=== PATIENT | male | born 1955 | race Caucasian/White ===

== ENCOUNTER 2021-07-22 01:24 | Emergency (ER) | payer MEDICARE, BC ==
[~2021-07-22] VITALS: Ht 185.4 cm; Wt 129.3 kg
[2021-07-22] MEDS ORDERED: BELLADONNA ALK/PHENOBARBITAL 5 ML UDC PO ONE (01:30)
[2021-07-22] MEDS ORDERED: MAGNESIUM/ALUMINUM/SIMETHICONE 30 ML UDC PO ONE (01:30)
[2021-07-22] MEDS ORDERED: LIDOCAINE VISC 2% SOLN 15 ML UDC PO ONE (01:30)
[2021-07-22 01:56] LABS: BASOPHILS % 0.7 % (0.0-1.0); EOSINOPHILS # (AUTO) 0.3 (0.0-0.4); EOSINOPHILS % 4.6 % (0.0-6.0); HEMATOCRIT 42.9 % (38.2-49.6); HEMOGLOBIN 13.5 g/dL (14.0-18.0); LYMPHOCYTES # (AUTO) 1.2 (1.0-3.2); LYMPHOCYTES % 19.7 % (18.0-39.1); MEAN CORPUSCULAR HEMOGLOBIN 26.7 pg (28-32); MEAN CORPUSCULAR HGB CONC 31.5 g/dL (31-35); MEAN CORPUSCULAR VOLUME 84.8 fL (81-99); MONOCYTES # (AUTO) 0.5 (0.2-0.8); MONOCYTES % 7.7 % (4.4-11.3); NEUTROPHILS # (AUTO) 4.1 (2.1-6.9); PLATELET COUNT 201 x10e3/uL (140-360); RED BLOOD COUNT 5.06 x10e6/uL (4.3-5.7); RED CELL DISTRIBUTION WIDTH 14.2 % (11.7-14.4)
[2021-07-22 02:11] LABS: ALBUMIN 3.1 g/dL (3.5-5.0); ALBUMIN/GLOBULIN RATIO 0.6 (0.8-2.0); ANION GAP 14.3 mmol/L (8-16); CALCIUM 9.4 mg/dL (8.4-10.2); CREATININE, SERUM 1.06 mg/dL (0.72-1.25); POTASSIUM 4.3 mmol/L (3.5-5.1)
[2021-07-22 02:17] LABS: CREATINE KINASE MB 1.1 ng/mL (0-5.0)
[2021-07-22 02:22] LABS: AMYLASE 64 U/L (25-125); LIPASE 117 U/L (8-78)
[2021-07-22] MEDS ORDERED: SODIUM CHLORIDE 0.9% 50ML 50 ML ONE (04:51)
[2021-07-22] MEDS ORDERED: IOPAMIDOL 370 MG/ML 200 ML INFUS..BTL INJ ONE (04:51)
[2021-07-22 05:58] LABS: CLARITY,URINE SL CLOUDY (CLEAR); COLOR,URINE YELLOW (YELLOW)
[2021-07-22 05:59] LABS: KETONES,URINE NEGATIVE (NEGATIVE); LEUKOCYTE ESTERASE ,URINE LARGE (NEGATIVE); NITRITE,URINE POSITIVE (NEGATIVE); PROTEIN,URINE DIPSTICK NEGATIVE (NEGATIVE)
[2021-07-22 06:12] LABS: BACTERIA,URINE MANY /HPF; WBC,URINE (MAN) >50 /HPF (0-5)
[2021-07-22 06:13] LABS: EPITHELIAL CELLS,URINE FEW /LPF
[2021-07-22 06:38] VITALS: BP 110/83
== END 2021-07-22 06:45 | disposition home or self-care (01) ==
LOC: ER 01:27
DX: R10.13 Epigastric pain (principal); R11.2 Nausea with vomiting, unspecified; N39.0 Urinary tract infection, site not specified; R94.5 Abnormal results of liver function studies; N42.9 Disorder of prostate, unspecified; E80.6 Other disorders of bilirubin metabolism; I10 Essential (primary) hypertension; Z20.822 Contact with and (suspected) exposure to COVID-19; F17.210 Nicotine dependence, cigarettes, uncomplicated
CPT/HCPCS: 36415; 74177; 76705; 80053; 80320; 81001; 82150; 82550; 82553; 83690; 84484; 85025; 93005; 99284; C9113; Q9967; U0002

== ENCOUNTER 2022-01-21 14:28 | Emergency (ER) | payer MEDICARE, BC ==
[~2022-01-21] VITALS: Ht 185.4 cm; Wt 120.2 kg
[2022-01-21] MEDS ORDERED: ONDANSETRON HCL INJ 2MG/ML 2ML 2 MG/ML VIAL IV STA (14:57)
[2022-01-21] MEDS ORDERED: SODIUM CHLORIDE 0.9% 1000ML 1,000 ML IV ONE (15:00)
[2022-01-21] MEDS ORDERED: DIPHENHYDRAMINE HCL INJ 50 MG/ML VIAL IV ONE (15:00)
[2022-01-21] MEDS ORDERED: ACETAMINOPHEN 325 MG TAB PO ONE (15:00)
[2022-01-21] MEDS ORDERED: METOCLOPRAMIDE HCL 10 MG/2ML VIAL IV ONE (15:00)
[2022-01-21] MEDS ORDERED: DIPHENHYDRAMINE HCL 25 MG CAP PO ONE (15:30)
[2022-01-21] MEDS ORDERED: ONDANSETRON HCL 4 MG ORAL DISINTEGRATING TAB PO ONE (15:30)
[2022-01-21] MEDS ORDERED: METOCLOPRAMIDE HCL 10 MG TAB PO ONE (15:30)
[2022-01-21 15:33] LABS: ALBUMIN 3.6 g/dL (3.5-5.0); ALBUMIN/GLOBULIN RATIO 0.7 (0.8-2.0); ANION GAP 17.6 mmol/L (8-16); CREATININE, SERUM 0.84 mg/dL (0.72-1.25); POTASSIUM 4.6 mmol/L (3.5-5.1)
[2022-01-21 15:37] LABS: BASOPHILS % 0.7 % (0.0-1.0); EOSINOPHILS # (AUTO) 0.4 (0.0-0.4); EOSINOPHILS % 7.6 % (0.0-6.0); HEMATOCRIT 44.4 % (38.2-49.6); HEMOGLOBIN 14.6 g/dL (14.0-18.0); LYMPHOCYTES # (AUTO) 1.3 (1.0-3.2); MEAN CORPUSCULAR HEMOGLOBIN 28.2 pg (28-32); MEAN CORPUSCULAR HGB CONC 32.9 g/dL (31-35); MEAN CORPUSCULAR VOLUME 85.9 fL (81-99); MONOCYTES # (AUTO) 0.4 (0.2-0.8); MONOCYTES % 6.6 % (4.4-11.3); NEUTROPHILS # (AUTO) 3.6 (2.1-6.9); NEUTROPHILS % 61.9 % (38.7-80.0); PLATELET COUNT 114 x10e3/uL (140-360); RED BLOOD COUNT 5.17 x10e6/uL (4.3-5.7); RED CELL DISTRIBUTION WIDTH 13.9 % (11.7-14.4)
[2022-01-21] MEDS ORDERED: FIORICET 50-301 EACH PO (17:13)
[2022-01-21 17:24] VITALS: BP 136/77
== END 2022-01-21 17:26 | disposition home or self-care (01) ==
LOC: ER 14:31
DX: R51.9 Headache, unspecified (principal); R11.2 Nausea with vomiting, unspecified; I10 Essential (primary) hypertension; B20 Human immunodeficiency virus [HIV] disease; K21.9 Gastro-esophageal reflux disease without esophagitis
CPT/HCPCS: 36415; 70450; 80053; 85025; 99284; J8597; Q0162

== ENCOUNTER 2024-01-01 09:35 | Inpatient (IN) | payer MEDICARE, BC ==
[~2024-01-01] VITALS: Ht 185.4 cm; Wt 111.1 kg
[2024-01-01] VITALS (8 sets, daily range): BP systolic 101–121; BP diastolic 73–81; PULSE 72–98; RESP 18–26; TEMP 97.8–99; O2SAT 96–100
[~2024-01-01 09:35] MED LIST: FIORICET 50-301 EACH PO
[2024-01-01 10:14] LABS: BASOPHILS # (AUTO) 0.1 (0.0-0.1); EOSINOPHILS # (AUTO) 0.8 (0.0-0.4); EOSINOPHILS % 14.5 % (0.0-6.0); HEMATOCRIT 43.7 % (38.2-49.6); HEMOGLOBIN 14.3 g/dL (14.0-18.0); LYMPHOCYTES # (AUTO) 1.7 (1.0-3.2); LYMPHOCYTES % 30.1 % (18.0-39.1); MEAN CORPUSCULAR HEMOGLOBIN 29.5 pg (28-32); MEAN CORPUSCULAR HGB CONC 32.7 g/dL (31-35); MEAN CORPUSCULAR VOLUME 90.1 fL (81-99); MONOCYTES # (AUTO) 0.5 (0.2-0.8); MONOCYTES % 8.7 % (4.4-11.3); NEUTROPHILS # (AUTO) 2.6 (2.1-6.9); NEUTROPHILS % 45.5 % (38.7-80.0); PLATELET COUNT 105 x10e3/uL (140-360); RED BLOOD COUNT 4.85 x10e6/uL (4.3-5.7); RED CELL DISTRIBUTION WIDTH 13.5 % (11.7-14.4); WHITE BLOOD COUNT 5.78 x10e3/uL (4.8-10.8)
[2024-01-01 10:35] LABS: ALBUMIN 3.2 g/dL (3.5-5.0); ALBUMIN/GLOBULIN RATIO 0.7 (0.8-2.0); ANION GAP 15.3 mmol/L (8-16); BILIRUBIN,TOTAL 1.1 mg/dL (0.2-1.2); CALCIUM 9.2 mg/dL (8.4-10.2); CREATININE, SERUM 0.87 mg/dL (0.72-1.25); POTASSIUM 4.3 mmol/L (3.5-5.1); TOTAL PROTEIN 7.6 g/dL (6.5-8.1)
[2024-01-01 10:41] LABS: TROPONIN I 0.006 ng/mL (0-0.300)
[2024-01-01] MEDS: ASPIRIN 81 MG CHEW TAB PO ONE (12:20)
[2024-01-01] MEDS ORDERED: ONDANSETRON HCL INJ 2MG/ML 2ML 2 MG/ML VIAL IV PRN (12:30)
[2024-01-01] MEDS: ALBUTEROL/IPRATROPIUM 3 ML NEB NEB SCH (14:00)
[2024-01-01] MEDS: NICOTINE 21 MG/EA PATCH TOP PRN (16:20)
[2024-01-01] MEDS: TRAMADOL HCL 50 MG TAB PO PRN (16:21)
[2024-01-01] MEDS: KETOROLAC TROMETHAMINE 30 MG/ML VIAL IV ONE (16:22)
[2024-01-02] VITALS (8 sets, daily range): BP systolic 102–128; BP diastolic 70–88; PULSE 64–85; RESP 16–24; TEMP 97.3–98.3; O2SAT 96–100
[2024-01-02 06:01] LABS: BASOPHILS # (AUTO) 0.1 (0.0-0.1); BASOPHILS % 1.1 % (0.0-1.0); EOSINOPHILS % 22.3 % (0.0-6.0); HEMATOCRIT 43.4 % (38.2-49.6); LYMPHOCYTES # (AUTO) 1.6 (1.0-3.2); LYMPHOCYTES % 33.5 % (18.0-39.1); MEAN CORPUSCULAR HEMOGLOBIN 29.2 pg (28-32); MEAN CORPUSCULAR HGB CONC 32.3 g/dL (31-35); MEAN CORPUSCULAR VOLUME 90.6 fL (81-99); MONOCYTES # (AUTO) 0.4 (0.2-0.8); MONOCYTES % 8.7 % (4.4-11.3); NEUTROPHILS # (AUTO) 1.6 (2.1-6.9); NEUTROPHILS % 34.2 % (38.7-80.0); PLATELET COUNT 95 x10e3/uL (140-360); RED BLOOD COUNT 4.79 x10e6/uL (4.3-5.7); RED CELL DISTRIBUTION WIDTH 13.4 % (11.7-14.4); WHITE BLOOD COUNT 4.62 x10e3/uL (4.8-10.8)
[2024-01-02] MEDS: ACETAMINOPHEN 325 MG TAB PO PRN (06:27)
[2024-01-02 06:29] LABS: ALBUMIN 2.9 g/dL (3.5-5.0); ALBUMIN/GLOBULIN RATIO 0.6 (0.8-2.0); ANION GAP 12.1 mmol/L (8-16); BILIRUBIN,TOTAL 1.1 mg/dL (0.2-1.2); CALCIUM 8.7 mg/dL (8.4-10.2); CHOL/HDL RATIO 3.3 (3.9-4.7); CREATININE, SERUM 0.84 mg/dL (0.72-1.25); POTASSIUM 4.1 mmol/L (3.5-5.1); TOTAL PROTEIN 7.4 g/dL (6.5-8.1)
[2024-01-02 06:37] LABS: THYROID STIMULATING HORMONE 7.586 uIU/mL (0.350-4.940); TROPONIN I 0.011 ng/mL (0-0.300)
[2024-01-02] MEDS: LIDOCAINE 4% PATCH TP SCH (07:45)
[2024-01-02 08:48] LABS: EOSINOPHILS % (MANUAL) 16 % (0-7); LYMPHOCYTES % (MANUAL) 24 % (19-48); MONOCYTES % (MANUAL) 9 % (3.4-9.0); MYELOCYTES % (MANUAL) 1 % (0-0); NEUTROPHILS % (MANUAL) 48 % (40-74); PLATELET ESTIMATE SLIGHTLY DECREASED; PLATELET MORPHOLOGY COMMENT NORMAL; RBC MORPHOLOGY COMMENT NORMAL; REACTIVE LYMPHOCYTES 2
[2024-01-02] MEDS ORDERED: AMOXICILLIN/CLAVULANATE K 875 MG TAB PO SCH (13:15)
[2024-01-02] MEDS ORDERED: REGADENOSON 0.4 MG/5 ML SYR IV ONE (14:21)
[2024-01-02] MEDS: AMOXICILLIN/CLAVULANATE K 875 MG TAB PO SCH (16:59)
[2024-01-02] MEDS ORDERED: AUGMENTIN 500-1 EACH PO (21:48)
== END 2024-01-02 17:13 | disposition home or self-care (01) | DRG 194 ==
LOC: ER 09:41 → ERHOLD 11:35 → MED/SURG3 13:56 → OBSVTOIN 01-02 14:06
PROVIDERS: ADMIT Internal Medicine; ATTEND Internal Medicine
DX: J18.9 Pneumonia, unspecified organism (principal); C34.92 Malignant neoplasm of unspecified part of left bronchus or lung; Z87.820 Personal history of traumatic brain injury; Z21 Asymptomatic human immunodeficiency virus [HIV] infection status; K21.9 Gastro-esophageal reflux disease without esophagitis; D69.6 Thrombocytopenia, unspecified; Z11.52 Encounter for screening for COVID-19; I10 Essential (primary) hypertension; Z88.5 Allergy status to narcotic agent; Z91.199 Patient's noncompliance with other medical treatment and regimen due to unspecified reason; Z90.49 Acquired absence of other specified parts of digestive tract; F17.210 Nicotine dependence, cigarettes, uncomplicated; F17.220 Nicotine dependence, chewing tobacco, uncomplicated; F17.290 Nicotine dependence, other tobacco product, uncomplicated
CPT/HCPCS: 36415; 71045; 71260; 78452; 80053; 80061; 82550; 84443; 84484; 85025; 93005; 93017; 94799; 99284; A9502; G0378; J1885; U0002

== ENCOUNTER 2024-11-09 00:08 | Emergency (ER) | payer MEDICARE, BC ==
[~2024-11-09] VITALS: Ht 185.4 cm; Wt 111.1 kg
[~2024-11-09 00:08] MED LIST changes: +AUGMENTIN 500-1 EACH PO; +CEFDINIR300 MG PO; +MECLIZINE HCL12.5 MG PO; +ULTRAM 50MG50 MG PO
[2024-11-09 00:35] VITALS: PULSE 94; RESP 18; TEMP 98.5
[2024-11-09] MEDS ORDERED: DOXYCYCLINE HY100 MG PO (03:24)
[2024-11-09 03:36] VITALS: BP 103/68; PULSE 89; RESP 18; TEMP 98.1; O2SAT 96
== END 2024-11-09 03:40 | disposition home or self-care (01) ==
LOC: ER 00:57
DX: R07.89 Other chest pain (principal); J18.9 Pneumonia, unspecified organism; R91.8 Other nonspecific abnormal finding of lung field; K76.9 Liver disease, unspecified; I10 Essential (primary) hypertension; B20 Human immunodeficiency virus [HIV] disease; K21.9 Gastro-esophageal reflux disease without esophagitis; F17.210 Nicotine dependence, cigarettes, uncomplicated
CPT/HCPCS: 71250; 99283

== ENCOUNTER 2024-11-16 16:53 | Inpatient (IN) | payer MEDICARE, BC ==
[~2024-11-16] VITALS: Ht 185.4 cm; Wt 89.8 kg
[~2024-11-16 16:53] MED LIST changes: +DOXYCYCLINE HY100 MG PO
[2024-11-16 18:12] LABS: BASOPHILS % 0.6 % (0.0-1.0); EOSINOPHILS # (AUTO) 0.6 (0.0-0.4); EOSINOPHILS % 8.7 % (0.0-6.0); HEMATOCRIT 37.7 % (38.2-49.6); HEMOGLOBIN 11.9 g/dL (14.0-18.0); LYMPHOCYTES # (AUTO) 1.2 (1.0-3.2); LYMPHOCYTES % 16.8 % (18.0-39.1); MEAN CORPUSCULAR HEMOGLOBIN 25.4 pg (28-32); MEAN CORPUSCULAR HGB CONC 31.6 g/dL (31-35); MEAN CORPUSCULAR VOLUME 80.4 fL (81-99); MONOCYTES # (AUTO) 0.8 (0.2-0.8); MONOCYTES % 11.2 % (4.4-11.3); NEUTROPHILS # (AUTO) 4.3 (2.1-6.9); NEUTROPHILS % 62.4 % (38.7-80.0); PLATELET COUNT 245 x10e3/uL (140-360); RED BLOOD COUNT 4.69 x10e6/uL (4.3-5.7); RED CELL DISTRIBUTION WIDTH 15.1 % (11.7-14.4); WHITE BLOOD COUNT 6.86 x10e3/uL (4.8-10.8)
[2024-11-16 18:40] LABS: ALBUMIN 2.3 g/dL (3.5-5.0); ALBUMIN/GLOBULIN RATIO 0.5 (0.8-2.0); ANION GAP 14.1 mmol/L (8-16); CALCIUM 8.8 mg/dL (8.4-10.2); CREATININE, SERUM 0.85 mg/dL (0.72-1.25); POTASSIUM 4.1 mmol/L (3.5-5.1)
[2024-11-16] MEDS ORDERED: ONDANSETRON HCL INJ 2MG/ML 2ML 2 MG/ML VIAL ONE (18:42)
[2024-11-16] MEDS: ONDANSETRON HCL INJ 2MG/ML 2ML 2 MG/ML VIAL IV STA (18:55)
[2024-11-16] MEDS: SODIUM CHLORIDE 0.9% 1000ML 1,000 ML IV ONE ×2 (18:56→23:10)
[2024-11-16 19:01] LABS: BILIRUBIN,URINE NEGATIVE (NEGATIVE); CLARITY,URINE SL CLOUDY (CLEAR); COLOR,URINE AMBER (YELLOW); GLUCOSE, URINE NEGATIVE (NEGATIVE); KETONES,URINE NEGATIVE (NEGATIVE); LEUKOCYTE ESTERASE ,URINE NEGATIVE (NEGATIVE); NITRITE,URINE NEGATIVE (NEGATIVE); PH,URINE 6 (5 - 7); PROTEIN,URINE DIPSTICK NEGATIVE (NEGATIVE); URINE UROBILINOGEN 2 mg/dL (0.2 - 1)
[2024-11-16 19:10] LABS: BACTERIA,URINE FEW /HPF; MUCUS,URINE MODERATE
[2024-11-16 19:15] LABS: TROPONIN I 0.032 ng/mL (0-0.300)
[2024-11-16] MEDS ORDERED: ONDANSETRON ODT4 MG SL (21:46)
[2024-11-16 23:10] VITALS: PULSE 71; RESP 18; TEMP 98.3
[2024-11-17] VITALS (10 sets, daily range): BP systolic 92–122; BP diastolic 59–87; PULSE 68–82; RESP 17–20; TEMP 97.4–98.2; O2SAT 94–100
[2024-11-17] MEDS ORDERED: IOPAMIDOL 370 MG/ML 100 ML INFUS..BTL INJ ONE (01:09)
[2024-11-17 05:22] LABS: BASOPHILS # (AUTO) 0.1 (0.0-0.1); EOSINOPHILS # (AUTO) 0.4 (0.0-0.4); EOSINOPHILS % 7.2 % (0.0-6.0); HEMATOCRIT 35.9 % (38.2-49.6); HEMOGLOBIN 11.2 g/dL (14.0-18.0); LYMPHOCYTES # (AUTO) 1.2 (1.0-3.2); LYMPHOCYTES % 19.2 % (18.0-39.1); MEAN CORPUSCULAR HEMOGLOBIN 25.7 pg (28-32); MEAN CORPUSCULAR HGB CONC 31.2 g/dL (31-35); MEAN CORPUSCULAR VOLUME 82.5 fL (81-99); MONOCYTES # (AUTO) 0.8 (0.2-0.8); NEUTROPHILS # (AUTO) 3.6 (2.1-6.9); NEUTROPHILS % 59.1 % (38.7-80.0); PLATELET COUNT 184 x10e3/uL (140-360); RED BLOOD COUNT 4.35 x10e6/uL (4.3-5.7); WHITE BLOOD COUNT 6.09 x10e3/uL (4.8-10.8)
[2024-11-17 05:59] LABS: ALBUMIN 1.9 g/dL (3.5-5.0); ALBUMIN/GLOBULIN RATIO 0.5 (0.8-2.0); ANION GAP 9.7 mmol/L (8-16); CALCIUM 8.1 mg/dL (8.4-10.2); CREATININE, SERUM 0.74 mg/dL (0.72-1.25); POTASSIUM 3.7 mmol/L (3.5-5.1); TOTAL PROTEIN 5.8 g/dL (6.5-8.1)
[2024-11-17 06:16] LABS: TROPONIN I 0.024 ng/mL (0-0.300)
[2024-11-17] MEDS ORDERED: ALBUTEROL/IPRATROPIUM 3 ML NEB NEB PRN (10:00)
[2024-11-17] MEDS ORDERED: HYDRALAZINE HCL 20 MG/ML VIAL IV PRN (10:00)
[2024-11-17] MEDS ORDERED: MELATONIN 5 MG TABLET PO PRN (10:00)
[2024-11-17] MEDS ORDERED: DIPHENHYDRAMINE HCL 25 MG CAP PO PRN (10:00)
[2024-11-17] MEDS ORDERED: DEXTROSE 50% SYRINGE 50 ML IV PRN (10:00)
[2024-11-17] MEDS ORDERED: DOCUSATE SODIUM 100 MG CAP PO PRN (10:00)
[2024-11-17] MEDS ORDERED: LIDOCAINE 4% PATCH TP PRN (10:00)
[2024-11-17] MEDS ORDERED: POTASSIUM CHLORIDE 20 MEQ TAB CR PO PRN (10:00)
[2024-11-17] MEDS ORDERED: BENZONATATE 100 MG CAP PO PRN (10:00)
[2024-11-17] MEDS ORDERED: SIMETHICONE 80 MG CHEW PO PRN (10:00)
[2024-11-17] MEDS ORDERED: ACETAMINOPHEN 325 MG TAB PO PRN (10:00)
[2024-11-17] MEDS ORDERED: MULTIVITAMINS- 12 INJECTION 10 ML, FOLIC ACID MDV 1 MG, THIAMINE HCL INJ 100 MG in SODI... IV SCH (14:30)
[2024-11-17 15:06] LABS: HIV 1&2 AB SCREEN ***REACTIVE*** (NONREACTIVE); HIV- 1 P24 AG SCREEN NON-REACTIVE (NONREACTIVE)
[2024-11-17 15:14] LABS: TROPONIN I 0.038 ng/mL (0-0.300)
[2024-11-17] MEDS: ENOXAPARIN SOD INJ 40 MG/0.4 ML SYR SC SCH (17:00)
[2024-11-17] MEDS: ALBUTEROL/IPRATROPIUM 3 ML NEB NEB SCH (19:00)
[2024-11-17] MEDS: MULTIVITAMINS- 12 INJECTION 10 ML, FOLIC ACID MDV 1 MG, THIAMINE HCL INJ 100 MG in SODI... IV SCH (19:18)
[2024-11-17] MEDS: MIDODRINE HCL 5 MG TABLET PO SCH (21:33)
[2024-11-17] MEDS: ONDANSETRON HCL INJ 2MG/ML 2ML 2 MG/ML VIAL IV PRN (23:27)
[2024-11-18] VITALS (11 sets, daily range): BP systolic 93–109; BP diastolic 56–65; PULSE 51–79; RESP 16–21; TEMP 97.1–98.3; O2SAT 95–100
[2024-11-18 06:13] LABS: BASOPHILS % 0.7 % (0.0-1.0); EOSINOPHILS # (AUTO) 0.6 (0.0-0.4); EOSINOPHILS % 11.3 % (0.0-6.0); HEMATOCRIT 38.2 % (38.2-49.6); HEMOGLOBIN 11.7 g/dL (14.0-18.0); LYMPHOCYTES # (AUTO) 1.1 (1.0-3.2); MEAN CORPUSCULAR HEMOGLOBIN 25.6 pg (28-32); MEAN CORPUSCULAR HGB CONC 30.6 g/dL (31-35); MEAN CORPUSCULAR VOLUME 83.6 fL (81-99); MONOCYTES # (AUTO) 0.7 (0.2-0.8); MONOCYTES % 12.2 % (4.4-11.3); NEUTROPHILS # (AUTO) 3.1 (2.1-6.9); NEUTROPHILS % 55.4 % (38.7-80.0); PLATELET COUNT 203 x10e3/uL (140-360); RED BLOOD COUNT 4.57 x10e6/uL (4.3-5.7); RED CELL DISTRIBUTION WIDTH 15.5 % (11.7-14.4); WHITE BLOOD COUNT 5.64 x10e3/uL (4.8-10.8)
[2024-11-18 06:33] LABS: INR 1.11; PROTHROMBIN TIME 15.3 seconds (11.9-14.5)
[2024-11-18 06:44] LABS: ANION GAP 11.3 mmol/L (8-16); CALCIUM 8.5 mg/dL (8.4-10.2); CHOL/HDL RATIO 3.2 (3.9-4.7); CREATININE, SERUM 0.77 mg/dL (0.72-1.25); MAGNESIUM 1.8 MG/DL (1.3-2.1); PHOSPHORUS 2.9 MG/DL (2.3-4.7); POTASSIUM 4.3 mmol/L (3.5-5.1)
[2024-11-18 07:08] LABS: THYROID STIMULATING HORMONE 4.509 uIU/mL (0.350-4.940)
[2024-11-18] MEDS: PANTOPRAZOLE SOD 40 MG TABEC PO SCH (10:29)
[2024-11-18] MEDS: FUROSEMIDE INJ 10 MG/ML 4 ML VIAL IV ONE (10:29)
[2024-11-18] MEDS: FUROSEMIDE INJ 10 MG/ML 4 ML VIAL IV SCH (17:31)
[2024-11-18] MEDS: Vancomycin IV 1 GM in SODIUM CHLORIDE 0.9% 250ML 250 ML IV SCH (17:31)
[2024-11-18] MEDS: METOPROLOL TARTRATE 25 MG TAB PO SCH (17:32)
[2024-11-19] VITALS (10 sets, daily range): BP systolic 80–108; BP diastolic 48–65; PULSE 63–87; RESP 16–20; TEMP 97.3–98.6; O2SAT 92–100
[2024-11-19 08:28] LABS: BASOPHILS # (AUTO) 0.1 (0.0-0.1); BASOPHILS % 1.2 % (0.0-1.0); EOSINOPHILS # (AUTO) 0.8 (0.0-0.4); EOSINOPHILS % 11.8 % (0.0-6.0); HEMATOCRIT 41.6 % (38.2-49.6); HEMOGLOBIN 12.9 g/dL (14.0-18.0); LYMPHOCYTES # (AUTO) 1.3 (1.0-3.2); LYMPHOCYTES % 19.6 % (18.0-39.1); MEAN CORPUSCULAR HEMOGLOBIN 25.7 pg (28-32); MEAN CORPUSCULAR VOLUME 82.9 fL (81-99); MONOCYTES # (AUTO) 0.6 (0.2-0.8); MONOCYTES % 9.3 % (4.4-11.3); NEUTROPHILS # (AUTO) 3.8 (2.1-6.9); NEUTROPHILS % 57.6 % (38.7-80.0); PLATELET COUNT 198 x10e3/uL (140-360); RED BLOOD COUNT 5.02 x10e6/uL (4.3-5.7); RED CELL DISTRIBUTION WIDTH 15.2 % (11.7-14.4); WHITE BLOOD COUNT 6.59 x10e3/uL (4.8-10.8)
[2024-11-19 09:04] LABS: ANION GAP 13.5 mmol/L (8-16); CALCIUM 8.6 mg/dL (8.4-10.2); CREATININE, SERUM 0.83 mg/dL (0.72-1.25); POTASSIUM 3.5 mmol/L (3.5-5.1)
[2024-11-19] MEDS: FOLIC ACID 1 MG TAB PO SCH (09:42)
[2024-11-19] MEDS: ASPIRIN 81 MG ENTERIC COATED PO SCH (09:43)
[2024-11-19] MEDS: THIAMINE HCL INJ 100 MG/ML 2ML VIAL IV SCH (09:43)
[2024-11-19] MEDS: MIDODRINE HCL 5 MG TABLET PO SCH (21:08)
[2024-11-20] VITALS (8 sets, daily range): BP systolic 89–103; BP diastolic 49–70; PULSE 59–79; RESP 16–18; TEMP 97.8–98.3; O2SAT 96–100
[2024-11-20] MEDS: FUROSEMIDE 40 MG TAB PO SCH (08:30)
[2024-11-20 14:02] LABS: ALPHA-1-ANTITRYPSIN 150 mg/dL (101-187)
[2024-11-22 08:54] LABS: HEPATITIS A ANTIBODY IGM (P) Negative; HEPATITIS B CORE IGM (P) Negative; HEPATITIS B SURFACE AG (P) Negative
[2024-11-22 08:55] LABS: HEPATITIS C ANTIBODY Non Reactive
[2024-11-22 08:56] LABS: SMOOTH MUSCLE ANTIBODY(ACTIN) 8
== END 2024-11-20 16:54 | disposition left against medical advice (07) | DRG 432 ==
LOC: ER 18:33 → ERHOLD 22:42 → MED/SURG2 23:40 → MED/SURG 11-20 14:58
PROVIDERS: ADMIT Internal Medicine; ATTEND Internal Medicine
DX: K74.60 Unspecified cirrhosis of liver (principal); J18.9 Pneumonia, unspecified organism; C34.32 Malignant neoplasm of lower lobe, left bronchus or lung; K76.6 Portal hypertension; E46 Unspecified protein-calorie malnutrition; R62.7 Adult failure to thrive; D63.8 Anemia in other chronic diseases classified elsewhere; I95.9 Hypotension, unspecified; R63.4 Abnormal weight loss; R16.1 Splenomegaly, not elsewhere classified; I71.43 Infrarenal abdominal aortic aneurysm, without rupture; R60.0 Localized edema; K21.9 Gastro-esophageal reflux disease without esophagitis; Z21 Asymptomatic human immunodeficiency virus [HIV] infection status; Z68.26 Body mass index [BMI] 26.0-26.9, adult; T37.5X6A Underdosing of antiviral drugs, initial encounter; Z53.29 Procedure and treatment not carried out because of patient's decision for other reasons; Z91.199 Patient's noncompliance with other medical treatment and regimen due to unspecified reason; Z91.128 Patient's intentional underdosing of medication regimen for other reason; Z63.4 Disappearance and death of family member; Z87.820 Personal history of traumatic brain injury; Z90.49 Acquired absence of other specified parts of digestive tract; Z88.5 Allergy status to narcotic agent; F17.200 Nicotine dependence, unspecified, uncomplicated
CPT/HCPCS: 36415; 70450; 71045; 72192; 74177; 80048; 80053; 80061; 80202; 81001; 82103; 82140; 82378; 82390; 82550; 83036; 83690; 83735; 83880; 84100; 84443; 84484; 85025; 85610; 86039; 86255; 86689; 87040; 87071; 87205; 87390; 93005; 93306; 93880; 93970; 94760; 94799; 99252; 99284; G0433; G0435; J0696; J1650; J1938; J2405; J2470; J2543; J3411; J7030; J7050; Q9967